=== PATIENT | female | born 1970 | race Caucasian/White ===

== ENCOUNTER 2023-06-30 12:00 | Emergency (ER) | payer BC, SELFPAY ==
[2023-06-30 12:05] VITALS: BP 176/111; PULSE 66; RESP 18; TEMP 36.9; O2SAT 99; BMI 27.4
--- NOTE | 2023-06-30 12:30 | XR_ITS ---
WS: [id number] Exam: XR KUB portable [id number] Date/Time of Exam: 06/30/2023 12:30 PM Reason For Exam: abd pain No bowel obstruction or free air. Signs of constipation. No sign of organ enlargement. Signs of prior cholecystectomy. Bony structures are intact. IMPRESSION: 1. No acute abdominal finding. Constipation.
--- NOTE | 2023-06-30 12:35 | W.ED.FEMALGU ---
HPI - Female Genitourinary General: Chief complaint: Urogenital-Female Stated complaint: maybe UTI and cant poop Time Seen by Provider: 06/30/23 12:30 Source: patient Mode of arrival: ambulatory History of Present Illness: 53-year-old female presents to the emergency room with complaints of abdominal pain and an episode of diaphoresis nausea lethargy feeling. 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 It passed she still feels somewhat tired now. By the time I had seen the patient she was no longer diaphoretic nursing notes states she had been diaphoretic. She denies any nausea vomiting or diarrhea she reports she frequently has UTIs has not had any hematuria no flank pain. No nausea or vomiting. She has not been able to bowel movement for nearly 10 days. Complaining of some persistent lower abdominal pelvic cramping MD elicited complaint: dysuria Pertinent past history: recurrent UTIs Onset (ago): minute(s) Location of symptoms: pelvis Severity: severe Quality of pain: cramping Exacerbating factors: none Relieving factors: none Associated symptoms: Reports abdominal pain and headache(s); Deny short of breath, fevers/chills, nausea, rash, seizures, syncope, vaginal bleeding, vaginal discharge or weakness Treatment prior to arrival: none Review of Systems Const: Denies: fever(s) or chills Card: Denies: syncope Resp: Denies: dyspnea GI: Reports: abdominal pain; Denies: nausea : Denies: vaginal discharge Musc: Denies: neck pain or back pain Skin/Breast: Denies: rash Neuro: Reports: headache(s) Physical Exam Const: COMMON NORMALS: no acute distress GENERAL APPEARANCE: cooperative and comfortable ORIENTATION/CONSCIOUSNESS: Yes awake, Yes oriented to person, Yes oriented to place and Yes oriented to time HENMT: COMMON NORMALS: normocephalic, atraumatic and hearing grossly normal bilaterally HEAD & SCALP: normocephalic and atraumatic Resp: COMMON NORMALS: normal respiratory effort, No retractions, No use of accessory muscles and clear to auscultation bilaterally AUSCULTATION: clear to auscultation bilaterally Cardio: COMMON NORMALS: regular rate, regular rhythm and No murmurs present (Cardio) RATE: regular rate RHYTHM: regular rhythm GI: COMMON NORMALS: Soft to palpation and No hepatosplenomegaly present AUSCULTATION: Yes normoactive bowel sounds PALPATION: Yes Soft to palpation, No Tenderness to palpation present (GI), No Guarding due to palpation present (GI) and Yes No hepatosplenomegaly present : SPECULUM EXAM - VAGINA: No vaginal bleeding OB/EXTERNAL & SPECULUM: No vaginal bleeding Extremity: COMMON NORMALS: normal to inspection, capillary refill normal, no clubbing, cyanosis or edema, no calf tenderness and no pedal edema Neuro: SENSORIUM/ORIENTATION: Yes oriented to person, Yes oriented to place and Yes oriented to time Skin: COMMON NORMALS: no rashes or lesions noted GENERAL SKIN EXAM: no rashes or lesions noted Course Vital Signs: Vital signs: Vital Signs Temperature 98.4 F 06/30/23 12:05 Pulse Rate 66 06/30/23 12:05 Respiratory Rate 18 06/30/23 12:05 Blood Pressure 176/111 06/30/23 12:05 Pulse Oximetry 99 06/30/23 12:05 Oxygen Delivery Me thod Room Air 06/30/23 12:05 MDM - Female Medical Decision Making Labs and imaging reviewed. No acute findings no UTI no leukocytosis. Recommend starting laxatives such as milk of magnesia or magnesium citrate for relief of constipation follow-up with primary care return if has further problems Medical Records I reviewed the patient's medical records. Lab Data I reviewed the patient's lab results. 06/30/23 13:33 06/30/23 13:33 Laboratory Results WBC 6.44 10^3/uL (3.29-11.43) 06/30/23 13:33 RBC 4.45 10^6/uL (3.85-5.65) 06/30/23 13:33 Hgb 13.40 g/dL (11.27-16.99) 06/30/23 13:33 Hct 40.8 % (36-47) 06/30/23 13:33 MCV 91.7 fl (85-98) 06/30/23 13:33 MCH 30.1 pg (27-33) 06/30/23 13:33 MCHC 32.8 g/dL (30-55) 06/30/23 13:33 RDW 13.9 % (12.1-15.1) 06/30/23 13:33 Plt Count 234 10^3/cmm (157-399) 06/30/23 13:33 MPV 8.8 fL (7.4-10.4) 06/30/23 13:33 Neut % (Auto) 56.8 % 06/30/23 13:33 Lymph % (Auto) 32.0 % 06/30/23 13:33 [place] % (Auto) 6.2 % 06/30/23 13:33 Eos % (Auto) 4.2 % 06/30/23 13:33 Baso % (Auto) 0.5 % 06/30/23 13:33 Neut # (Auto) 3.66 10^3/uL (1.8-7.7) 06/30/23 13:33 Lymph # (Auto) 2.1 10^3/uL (0.8-4.8) 06/30/23 13:33 [place] # (Auto) 0.4 10^3/uL (0.2-0.9) 06/30/23 13:33 Eos # (Auto) 0.3 10^3/uL (0.0-0.8) 06/30/23 13:33 Baso # (Auto) 0.0 10^3/uL (0.0-0.1) 06/30/23 13:33 Nucleated RBC % (auto) 0 % 06/30/23 13:33 Nucleated RBCs # 0.0 /100WBC 06/30/23 13:33 Sodium 139 mmol/L (136-145) 06/30/23 13:33 Potassium 4.3 mmol/L (3.5-5.1) 06/30/23 13:33 Chloride 106 mmol/L (98-107) 06/30/23 13:33 Carbon Dioxide 23 mmol/L (22-29) 06/30/23 13:33 Anion Gap 14.3 (5-19) 06/30/23 13:33 BUN 15 mg/dL (6-20) 06/30/23 13:33 Creatinine 0.8 mg/dL (0.5-0.9) 06/30/23 13:33 GFR Calculation 74.7 mL/min (90-130) L 06/30/23 13:33 Glucose 78 mg/dL (65-115) 06/30/23 13:33 Calculated Osmolality 288 mOsm/kg (285-295) 06/30/23 13:33 Calcium 9.1 mg/dL (8.5-10.5) 06/30/23 13:33 Total Bilirubin 0.2 mg/dL (0.15-1.2) 06/30/23 13:33 AST 23 U/L (0-32) 06/30/23 13:33 ALT 17 U/L (0-33) 06/30/23 13:33 Alkaline Phosphatase 123 U/L (35-105) H 06/30/23 13:33 Total Protein 7.0 g/dL (6.6-8.7) 06/30/23 13:33 Albumin 4.2 g/dL (3.5-5.2) 06/30/23 13:33 Globulin 2.8 g/dL (1.3-4.6) 06/30/23 13:33 Lipase 23 U/L (13-60) 06/30/23 13:33 Urine Color Yellow (Yellow) 06/30/23 12:20 Urine Appearance Sl hazy (CLEAR) A 06/30/23 12:20 Urine pH 6 (5-7) 06/30/23 12:20 Ur Specific [place] 1.010 (1.005-1.030) 06/30/23 12:20 Urine Protein Neg (Negative) 06/30/23 12:20 Urine Glucose (UA) Norm (Normal) 06/30/23 12:20 Urine Ketones Negative (Negative) 06/30/23 12:20 Urine Blood Neg (Negative) 06/30/23 12:20 Urine Nitrate Negative (Negative) 06/30/23 12:20 Urine Bilirubin Neg (Negative) 06/30/23 12:20 Urine Urobilinogen Norm mg/dL (Negative) 06/30/23 12:20 Ur Leukocyte Esterase Negative (Negative) 06/30/23 12:20 Urine RBC Rare /hpf (0-2) 06/30/23 12:20 Urine WBC 0-4 /hpf (0-5) H 06/30/23 12:20 Ur Squamous Epith Cells 0-4 /hpf (0-5) H 06/30/23 12:20 Amorphous Sediment Not Reportable 06/30/23 12:20 Urine Bacteria 1+ /hpf (NONE) H 06/30/23 12:20 All radiology interpretation(s) finalized by discharge Discharge Plan Discharge Patient Disposition: Home Clinical Impression: Constipation Condition: Stable Prescriptions: No Action Multi-Vitamins Tablet 1 tab PO QAM Wellbutrin SR 150 mg Tablet Sustained-Release 12 Hr 150 mg PO QAM tizanidine 2 mg Tablet 2 mg PO BEDTIME PRN (Reason: Spasms) Xanax 1 mg Tablet See Rx Instructions .ROUTE .COMPLEX PRN (Reason: Anxiety) Rx Instructions: 1 mg orally up to 3 times daily as needed meloxicam 15 mg Tablet 15 mg PO QAM tramadol 50 mg Tablet 50 mg PO Q6H PRN (Reason: Pain) propranolol 10 mg Tablet 10 mg PO BID estradiol 1 mg Tablet 1 mg PO QAM iueifzedfv-akxrwae-khozrlgd 50-325-40 mg Tablet 0.5 tab PO Q6H PRN (Reason: Pain) oxycodone 5 mg Tablet 5 mg PO Q6H PRN (Reason: Pain) duloxetine 30 mg Capsule,Delayed Release(Dr/Ec) 30 mg PO QAM biotin 5 mg Tablet 5 mg PO DAILY mike extract 500 mg Capsule 500 mg PO QAM Probiotic 3 billion cell Capsule 3,000 mmu cells PO DAILY Rx Instructions: administer with a meal Collagen 1500 Plus C 500 mg-800 mcg- 50 mg Capsule 1 cap PO QAM Hair, Skin and Nails (biotin) 10,000 mcg Tablet,Chewable 10,000 mcg PO QAM Discharge Orders: Discharge ED (Routine); Ordered 06/30/23 Ordered By: Timbo Garcia Discharge Diet: Usual diet Discharge Activity: Increase activity as tolerated Patient Instructions: Opioid Safety, Pain Management Stand Alone Forms: Work/School Release Coding Level of Care Code ED Slab Miller Operator for Geoff Everett
[2023-06-30 12:49] LABS: Urine Color Yellow (Yellow)
[2023-06-30 12:50] LABS: Add Urine Microscopic? YES; Bacteria Urine 1+ /hpf; Bilirubin Urine Neg (Negative); Blood Urine Neg (Negative); Glucose Urine UA Norm (Normal); Ketones Urine Negative (Negative); Leukocyte Esterase Urine Negative (Negative); Nitrate Urine Negative (Negative); Protein Urine Neg (Negative); RBC Urine RARE /hpf (0-2); Squamous Epithelial Cell Urine 0-4 /hpf (0-5); Urine Appearance SL Hazy (CLEAR); Urobilinogen Urine Norm (Negative); WBC Urine 0-4 /hpf (0-5); pH Urine 6 (5-7)
[2023-06-30 13:54] LABS: Basophils % 0.5 %; Eosinophils # 0.3 10^3/uL (0.0-0.8); Eosinophils % 4.2 %; Hematocrit 40.8 % (36-47); Lymphocytes # 2.1 10^3/uL (0.8-4.8); Mean Corpuscular HGB Conc 32.8 g/dL (30-55); Mean Corpuscular Hemoglobin 30.1 pg (27-33); Mean Corpuscular Volume 91.7 fl (85-98); Mean Platelet Volume 8.8 fL (7.4-10.4); Monocytes # 0.4 10^3/uL (0.2-0.9); Monocytes % 6.2 %; Neutrophils # 3.66 10^3/uL (1.8-7.7); Neutrophils % 56.8 %; Nucleated Red Blood Cells % 0 %; Platelet Count 234 10^3/cmm (157-399); Red Blood Count 4.45 10^6/uL (3.85-5.65); Red Cell Distribution Width 13.9 % (12.1-15.1); White Blood Count 6.44 10^3/uL (3.29-11.43)
--- NOTE | 2023-06-30 14:02 | PC.PHAR ---
PT STATES JUST MOVED HERE AND HAS HOME PHARMACY [facility] IN [place]. PT HAS GIVEN MED HISTORY FROM [facility], STATES SHE HAS TAKEN MEDS FOR A LONG TIME.
[2023-06-30 14:26] LABS: Alanine Aminotransferase 17 U/L (0-33); Albumin Level 4.2 g/dL (3.5-5.2); Alkaline Phosphatase 123 U/L (35-105); Anion Gap 14.3 (5-19); Aspartate Amino Transferase 23 U/L (0-32); Blood Urea Nitrogen 15 mg/dL (6-20); Calcium 9.1 mg/dL (8.5-10.5); Carbon Dioxide 23 mmol/L (22-29); Chloride 106 mmol/L (98-107); Globulin 2.8 g/dL (1.3-4.6); Glomerular Filtration Rate 74.7 mL/min (90-130); Glucose 78 mg/dL (65-115); Lipase 23 U/L (13-60); Osmolality Calculated 288 mOsm/kg (285-295); Potassium 4.3 mmol/L (3.5-5.1); Sodium 139 mmol/L (136-145); Total Bilirubin 0.2 mg/dL (0.15-1.2)
== END 2023-06-30 15:07 | disposition home or self-care (01) ==
PROVIDERS: Physician Assistant; Emergency Provider Family Medicine
DX: K59.00 Constipation, unspecified (principal)
CPT/HCPCS: 36415; 74018; 80053; 81001; 83690; 85025; 99284

== ENCOUNTER 2024-02-02 18:43 | Emergency (ER) | payer BC, SELFPAY ==
[2024-02-02 18:48] VITALS: BP 151/84; PULSE 79; RESP 16; TEMP 36.3; O2SAT 98
[2024-02-02 19:30] VITALS: BP 147/99; PULSE 75; RESP 14; O2SAT 98
[2024-02-02 19:37] LABS: Basophils % 0.3 %; Eosinophils # 0.4 10^3/uL (0.0-0.8); Eosinophils % 5.1 %; Hematocrit 39.4 % (36-47); Lymphocytes # 1.1 10^3/uL (0.8-4.8); Lymphocytes % 13.9 %; Mean Corpuscular Hemoglobin 29.4 pg (27-33); Mean Corpuscular Volume 94.9 fl (85-98); Mean Platelet Volume 9.1 fL (7.4-10.4); Monocytes # 0.4 10^3/uL (0.2-0.9); Monocytes % 5.8 %; Neutrophils # 5.67 10^3/uL (1.8-7.7); Neutrophils % 74.6 %; Nucleated Red Blood Cells % 0 %; Platelet Count 270 10^3/cmm (157-399); Red Blood Count 4.15 10^6/uL (3.85-5.65); Red Cell Distribution Width 13.5 % (12.1-15.1)
[2024-02-02] MEDS: lidocaine 2% viscous 15 ML, aluminum-mag hydrox-simethicon 30 ML, sucralfate oral liq 1 GM PO (19:51)
[2024-02-02] MEDS: sodium chloride 0.9% 1,000 ML 999 ML IV (19:51)
[2024-02-02] MEDS: pantoprazole 40 mg SDV 80 MG IVP (19:52)
[2024-02-02 19:56] LABS: Alanine Aminotransferase 99 U/L (0-33); Albumin Level 4.3 g/dL (3.5-5.2); Alkaline Phosphatase 249 U/L (35-105); Aspartate Amino Transferase 249 U/L (0-32); Blood Urea Nitrogen 11 mg/dL (6-20); Calcium 8.5 mg/dL (8.5-10.5); Carbon Dioxide 29 mmol/L (22-29); Chloride 102 mmol/L (98-107); Globulin 2.7 g/dL (1.3-4.6); Glomerular Filtration Rate 74.5 mL/min (90-130); Glucose 100 mg/dL (65-115); Osmolality Calculated 289 mOsm/kg (285-295); Sodium 140 mmol/L (136-145); Total Bilirubin 0.5 mg/dL (0.15-1.2)
[2024-02-02 19:57] LABS: Lipase 30 U/L (13-60)
[2024-02-02 20:00] VITALS: BP 165/88; PULSE 76; RESP 14; O2SAT 97
--- NOTE | 2024-02-02 20:01 | CTR_ITS ---
PROCEDURE INFORMATION: Exam: CT Abdomen And Pelvis With Contrast Exam date and time: 02/02/2024 8:17 PM Age: 54 years old Clinical indication: Pain and abnormal findings; Abnormal lab test; Abdominal pain; Prior surgery; Surgery date: 6+ months; Surgery type: Gb. Appy. Hysto. Jamison. Patient HX: Epigastric pain with elevated liver enzymes. History of pancreatitis and gastric ulcers. ; Additional info: Epigastric pain with elevated liver enzymes, no rebound, but significant guarding TECHNIQUE: Imaging protocol: Computed tomography of the abdomen and pelvis with contrast. Radiation optimization: All CT scans at this facility use at least one of these dose optimization techniques: automated exposure control; mA and/or kV adjustment per patient size (includes targeted exams where dose is matched to clinical indication); or iterative reconstruction. Contrast material: OMNI 350; Contrast volume: 100 ml; Contrast route: INTRAVENOUS (IV); COMPARISON: CR XR KUB portable [id number] 06/30/2023 12:36 PM RADIATION DOSE METRICS: Total DLP (mGy-cm): 679.25 FINDINGS: Liver: Normal. No mass. Gallbladder and bile ducts: The gallbladder is absent. Pancreas: Normal. No ductal dilation. Spleen: Normal. No splenomegaly. Adrenal glands: Normal. No mass. Kidneys and ureters: Normal. No hydronephrosis. Stomach and bowel: Unremarkable. No obstruction. No mucosal thickening. Appendix: The appendix is not visualized but there are no secondary signs of acute appendicitis. Intraperitoneal space: Unremarkable. No free air. No significant fluid collection. Vasculature: Unremarkable. No abdominal aortic aneurysm. Lymph nodes: Unremarkable. No enlarged lymph nodes. Urinary bladder: Unremarkable as visualized. Reproductive: Unremarkable as visualized. Bones/joints: Unremarkable. No acute fracture. Soft tissues: Unremarkable. CT/CT abdomen pelvis w con* [id number] IMPRESSION: 1. No bowel obstruction or inflammatory process associated with the bowel. 2. No free air or significant free fluid in the abdomen or pelvis. 3. No evidence of appendicitis.
[2024-02-02] MEDS: iohexol 350 mg/mL 500 mL Btl (per mL) IV (20:20)
[2024-02-02 20:30] VITALS: BP 178/95; PULSE 88; RESP 16; O2SAT 99
--- NOTE | 2024-02-02 20:47 | PC.NURSE ---
PAIN REASSESSED AT 12/12
[2024-02-02 21:30] VITALS: BP 175/81; PULSE 72; RESP 15; O2SAT 97
[2024-02-02] MEDS: propranolol 20 mg Tablet 10 MG PO (21:35)
[2024-02-02] MEDS: sucralfate 1 gm Tablet PO (21:35)
--- NOTE | 2024-02-02 21:41 | ED_ITS ---
HPI - Abdominal Pain 2 General: Chief Complaint: Abdominal Pain Stated Complaint: ABD Pain\Ulser Time Seen by Provider: 02/02/24 19:04 History of Present Illness: The patient presents to the emergency room with a chief complaint of significant epigastric pain, which he attributes to his known ulcer condition. He reports that the pain has been particularly severe, waking him up at night, and unlike previous episodes, it has not been alleviated by drinking milk. Additionally, he notes that his stool is darker today, which is a new development. The patient has a pertinent past medical history of pancreatitis, which he explains was caused by a gallstone. He also mentions experiencing chills off and on, which he associates with his recent hip replacement surgery rather than his current abdominal issues. Regarding his current medication, the patient indicates that he was initially prescribed medication for his ulcer but feels he does not need it, though he still takes it. He does not specify the name or dosage of this medication. Review of Systems 2 General: Reports: 10 or more systems reviewed and unremarkable except in HPI and below Physical Exam 2 Const: COMMON NORMALS: no acute distress, patient oriented x3, healthy appearing, alert and well nourished HENMT: COMMON NORMALS: normocephalic HEAD & SCALP: normocephalic Eye: COMMON NORMALS: EOMs intact bilaterally Neck/C-Spine: COMMON NORMALS: full ROM and supple Resp: COMMON NORMALS: normal respiratory effort, No retractions and clear to auscultation bilaterally AUSCULTATION: clear to auscultation bilaterally Cardio: COMMON NORMALS: regular rate, regular rhythm, No gallops present (Cardio) and No murmurs present (Cardio) RATE: regular rate RHYTHM: r egular rhythm GI: COMMON NORMALS: Soft to palpation and No hepatosplenomegaly present I NSPECTION: Yes normal to inspection AUSCULTATION: Yes Hypoactive bowel sounds present PALPATION: Yes Soft to palpation, Yes Tenderness to palpation present (GI) Details: LUQ and other (Epigastric), No Guarding due to palpation present (GI), No Rigid due to palpation, Yes No hepatosplenomegaly present and No Rebound tenderness present Extremity: GENERAL: Yes normal exam except as noted Neuro: COMMON NORMALS: patient oriented x3 SENSORIUM/ORIENTATION: Yes alert Skin: COMMON NORMALS: no rashes or lesions noted GENERAL SKIN EXAM: no rashes or lesions noted Course 2 Vital Signs: Vital signs: Vital Signs Temperature 97.4 F L 02/02/24 18:48 Pulse Rate 79 02/02/24 18:48 Respiratory Rate 16 02/02/24 18:48 Blood Pressure 151/84 02/02/24 18:48 Pulse Oximetry 98 02/02/24 18:48 Oxygen Delivery Me thod Room Air 02/02/24 18:48 MDM - Abdominal Pain Medical Decision Making 54-year-old female presents to the emergency department for evaluation of epigastric abdominal pain. She did endorse some nausea without hematemesis or hematochezia. Patient's laboratory exam only demonstrated mildly elevated liver enzymes. CT scan was globally unremarkable. Patient's history of ulcer, symptoms, and evaluation here in the emergency department are all consistent with peptic ulcer disease without hemorrhage. She is hemodynamically stable. She responded well to GI cocktail and IV Protonix. Discharged home with oral Protonix twice daily. Instructed her to follow-up with her primary care physician for evaluation on elevated liver enzymes and referral for evaluation of her ulcer. Discussed return precautions including hematemesis, worsening pain, inability to tolerate oral intake. Of note her blood pressure was elevated in the emergency department and she was given 1 dose of her home medication as she normally takes it in the evening. Patient discharged home in good condition. Differential Diagnosis Likely abdominal pain (Peptic ulcer disease, gastritis), constipation, pancreatitis and small bowel obstruction Lab Data 02/02/24 18:22 02/02/24 18:22 Labs/Radiology: Radiology Impressions Abdomen/Pelvis CT 02/02/24 20:01 IMPRESSION: 1. No bowel obstruction or inflammatory process associated with the bowel. 2. No free air or significant free fluid in the abdomen or pelvis. 3. No evidence of appendicitis. Laboratory Results WBC 7.60 10^3/uL (3.29-11.43) 02/02/24 18:22 RBC 4.15 10^6/uL (3.85-5.65) 02/02/24 18:22 Hgb 12.20 g/dL (11.27-16.99) 02/02/24 18:22 Hct 39.4 % (36-47) 02/02/24 18:22 MCV 94.9 fl (85-98) 02/02/24 18:22 MCH 29.4 pg (27-33) 02/02/24 18:22 MCHC 31.0 g/dL (30-55) 02/02/24 18:22 RDW 13.5 % (12.1-15.1) 02/02/24 18: Plt Count 270 10^3/cmm (157-399) 02/02/24 18:22 MPV 9.1 fL (7.4-10.4) 02/02/24 18:22 Neut % (Auto) 74.6 % 02/02/24 18:22 Lymph % (Auto) 13.9 % 02/02/24 18:22 [place] % (Auto) 5.8 % 02/02/24 18:22 Eos % (Auto) 5.1 % 02/02/24 18:22 Baso % (Auto) 0.3 % 02/02/24 18: Neut # (Auto) 5.67 10^3/uL (1.8-7.7) 02/02/24 18:22 Lymph # (Auto) 1.1 10^3/uL (0.8-4.8) 02/02/24 18:22 [place] # (Auto) 0.4 10^3/uL (0.2-0.9) 02/02/24 18:22 Eos # (Auto) 0.4 10^3/uL (0.0-0.8) 02/02/24 18: Baso # (Auto) 0.0 10^3/uL (0.0-0.1) 02/02/24 18: Nucleated RBC % (auto) 0 % 02/02/24 18: Nucleated RBCs # 0.0 /100WBC 02/02/24 18:22 Sodium 140 mmol/L (136-145) 02/02/24 18:22 Potassium 4.0 mmol/L (3.5-5.1) 02/02/24 18:22 Chloride 102 mmol/L (98-107) 02/02/24 18:22 Carbon Dioxide 29 mmol/L (22-29) 02/02/24 18:22 Anion Gap 13.0 (5-19) 02/02/24 18:22 BUN 11 mg/dL (6-20) 02/02/24 18:22 Creatinine 0.8 mg/dL (0.5-0.9) 02/02/24 18:22 GFR Calculation 74.5 mL/min (90-130) L 02/02/24 18:22 Glucose 100 mg/dL (65-115) 02/02/24 18:22 Calculated Osmolality 289 mOsm/kg (285-295) 02/02/24 18:22 Calcium 8.5 mg/dL (8.5-10.5) 02/02/24 18:22 Total Bilirubin 0.5 mg/dL (0.15-1.2) 02/02/24 18:22 AST 249 U/L (0-32) H 02/02/24 18:22 ALT 99 U/L (0-33) H 02/02/24 18:22 Alkaline Phosphatase 249 U/L (35-105) H 02/02/24 18:22 Total Protein 7.0 g/dL (6.6-8.7) 02/02/24 18:22 Albumin 4.3 g/dL (3.5-5.2) 02/02/24 18:22 Globulin 2.7 g/dL (1.3-4.6) 02/02/24 18:22 Lipase 30 U/L (13-60) 02/02/24 18:22 All radiology interpretation(s) finalized by discharge Discharge Plan Discharge Patient Disposition: Home Clinical Impression: Peptic ulcer, Transaminitis Condition: Stable Prescriptions: New Protonix 40 mg tablet,delayed release (DR/EC) 40 mg PO BID 10 Days Qty: 20 0RF No Action Multi-Vitamins Tablet 1 tab PO QAM Wellbutrin SR 150 mg Tablet Sustained-Release 12 Hr 150 mg PO QAM tizanidine 2 mg Tablet 2 mg PO BEDTIME PRN (Reason: Spasms) Xanax 1 mg Tablet See Rx Instructions .ROUTE .COMPLEX PRN (Reason: Anxiety) Rx Instructions: 1 mg orally up to 3 times daily as needed meloxicam 15 mg Tablet 15 mg PO QAM tramadol 50 mg Tablet 50 mg PO Q6H PRN (Reason: Pain) propranolol 10 mg Tablet 10 mg PO BID estradiol 1 mg Tablet 1 mg PO QAM ngvaqnmyim-zkmnmgc-golzaiak 50-325-40 mg Tablet 0.5 tab PO Q6H PRN (Reason: Pain) oxycodone 5 mg Tablet 5 mg PO Q6H PRN (Reason: Pain) duloxetine 30 mg Capsule,Delayed Release(Dr/Ec) 30 mg PO QAM biotin 5 mg Tablet 5 mg PO DAILY mike extract 500 mg Capsule 500 mg PO QAM Probiotic 3 billion cell Capsule 3,000 mmu cells PO DAILY Rx Instructions: administer with a meal Collagen 1500 Plus C 500 mg-800 mcg- 50 mg Capsule 1 cap PO QAM Hair, Skin and Nails (biotin) 10,000 mcg Tablet,Chewable 10,000 mcg PO QAM Discharge Orders: Discharge ED (Routine); Ordered 02/02/24 Ordered By: Sixto Hendrix Referrals: Fadi Nation MD [Primary Care Provider] - (Follow-up on abnormal liver enzymes and peptic ulcer.) Discharge Diet: Advance as tolerated Discharge Activity: Increase activity as tolerated Patient Instructions: Peptic Ulcer (ED), Opioid Safety, Pain Management Activity Restrictions/Additional Instructions: Please return to the emergency department for new or worsening symptoms. Please take medications as prescribed. Please follow-up with your primary care physician for further management of your ulcer and abnormal liver enzymes. Coding Level of Care Code ED Traffic Signal Technician for Geoff Everett
--- NOTE | 2024-02-03 09:46 | PC.NURSE ---
prescription called into [facility]
== END 2024-02-02 22:00 | disposition home or self-care (01) ==
PROVIDERS: Emergency Provider General Practice
DX: K27.9 Peptic ulcer, site unspecified, unspecified as acute or chronic, without hemorrhage or perforation (principal); R74.01 Elevation of levels of liver transaminase levels
CPT/HCPCS: 74177; 80053; 83690; 85025; 96361; 96374; 99285; C9113; J7030; Q9967

== ENCOUNTER 2025-01-28 09:46 | Emergency (ER) | payer OTHER, MEDICAID, SELFPAY ==
[2025-01-28 10:06] VITALS: BP 167/96; PULSE 77; RESP 17; TEMP 36.9; O2SAT 97; BMI 29.2
--- NOTE | 2025-01-28 10:37 | CT_ITS ---
WS: [id number] CT HEAD NONCONTRAST HISTORY: pires TECHNIQUE: Contiguous axial imaging performed through the brain. Bone and soft tissue windows. Sagittal and coronal reformats reviewed. All CT scans at [facility] use at least one of these dose optimization techniques: automated exposure control; mA and/or kV adjustment per patient size (includes targeted exams where dose is matched to clinical indication); or iterative reconstruction. DLP: 1319.66 mGy.cm COMPARISON: None available. No acute intracranial hemorrhage, midline shift or mass effect. No atrophy or prior infarcts or herniation. Ventricles: Normal size with no hydrocephalus. Paranasal sinuses: As visualized are clear. Mastoid air cells: Well pneumatized. Calvarium and scalp: Skull is intact with no soft tissue edema or swelling. CT/CT head wo con* [id number] IMPRESSION: Negative head CT.
--- NOTE | 2025-01-28 10:37 | XR_ITS ---
WS: [id number] PORTABLE CHEST HISTORY: weakness COMPARISON: 03/28/2050 Lungs are clear and well expanded. No pleural effusion or pneumothorax. Cardiac size: Normal. Mediastinum/Aorta: Normal mediastinum. No osseous abnormality seen. XR/XR chest 1V portable [id number] IMPRESSION: Unremarkable portable chest.
--- NOTE | 2025-01-28 10:45 | CT_ITS ---
WS: [id number] CT CERVICAL SPINE HISTORY: neck pain TECHNIQUE: Contiguous 2.0 mm axial imaging performed through the entire cervical spine. Sagittal and coronal reformats also performed. All CT scans at [facility] use at least one of these dose optimization techniques: automated exposure control; mA and/or kV adjustment per patient size (includes targeted exams where dose is matched to clinical indication); or iterative reconstruction. DLP: 1319.66 mGy.cm COMPARISON: Prior C-spine CT 05/20/2015. Mild curvature and scoliosis of the cervical spine. Prior anterior cervical fusion from C4-C6. Interbody spacers at C4-5 and C5-6. There is revision at the C6-7 level with new disc spacer and screw which is new since 05/20/2015. There is lucency around the elbow likely oriented screw extending through C7. Advanced facet joint arthropathy on the LEFT with fusion of the facet joints at C4-5. Severe facet arthropathy on the LEFT at C2-3 and C3-4. Additional advanced facet joint arthritis on the RIGHT from C2-C6. No acute fractures. Moderate C2-3 RIGHT foraminal stenosis. Moderate LEFT foraminal stenosis at C3-4. Osteophytic ridging at C5-6. Osteophytic ridging at C6-7 with moderate bilateral foraminal stenosis. Lung apices are clear. CT/CT cervical spin wo con* [id number] IMPRESSION: 1. Prior anterior cervical fusion with interbody spacers from C4-C6. 2. No revision hardware since 2014 at C6-7. 3. Lucency surrounding the oblique screw at the C7 level which may indicate lo osening. 4. Multilevel facet joint arthritis and foraminal narrowing as above. 5. No fractures identified.
--- NOTE | 2025-01-28 10:57 | W.ED.HA ---
HPI - Headache General: Chief Complaint: Headache Stated Complaint: back pain, MORSE, blacking out Time Seen by Provider: 01/28/25 10:31 Source: patient Limitations: no limitations History of Present Illness: 54-year-old female is here with multiple complaints she states that she has history of chronic pain and arthritis states has been having pain in her neck along with headaches she states she has been having generalized weakness has been having back pain. States she has had episodes of passing out over the last 3 weeks. She denies any chest pain. Denies any fevers Associated symptoms: Reports syncope; Deny chest pain, fever(s), nausea, rash or vomiting Related Data Home Medications ?Medication ?Instructions ?Recorded ?Confirmed alprazolam 1 mg tablet (Xanax) See Rx Instructions .Route 06/30/23 06/30/23 .COMPLEX PRN Anxiety biotin 10,000 mcg chewable tablet 10,000 mcg PO QAM 06/30/23 06/30/23 (Hair, Skin and Nails (biotin)) biotin 5 mg tablet 5 mg PO DAILY 06/30/23 06/30/23 bupropion HCl 150 mg tablet,12 hr 150 mg PO QAM 06/30/23 06/30/23 sustained-release (Wellbutrin SR) zenwioaqcm-jxrwsig-pluatsbs 50 0.5 tab PO Q6H PRN Pain 06/30/23 06/30/23 mg-325 mg-40 mg tablet collagen,hydrolysate 500 mg-biotin 1 cap PO QAM 06/30/23 06/30/23 800 mcg-ascorbic acid 50 mg capsule (Collagen 1500 Plus C) duloxetine 30 mg capsule,delayed 30 mg PO QAM 06/30/23 06/30/23 release estradiol 1 mg tablet 1 mg PO QAM 06/30/23 06/30/23 lactobacillus combination no.4 3 3,000 mmu cells PO DAILY 06/30/23 06/30/23 billion cell capsule (Probiotic) mike extract 500 mg capsule 500 mg PO QAM 06/30/23 06/30/23 meloxicam 15 mg tablet 15 mg PO QAM 06/30/23 06/30/23 multivitamin 1 tab PO QAM 06/30/23 06/30/23 oxycodone 5 mg tablet 5 mg PO Q6H PRN Pain 06/30/23 06/30/23 propranolol 10 mg tablet 10 mg PO BID 06/30/23 06/30/23 tizanidine 2 mg tablet 2 mg PO BEDTIME PRN Spasms 06/30/23 06/30/23 tramadol 50 mg tablet 50 mg PO Q6H PRN Pain 06/30/23 06/30/23 Previous Rx's ?Medication ?Instructions ?Recorded methocarbamol 750 mg tablet 750 mg PO Q6H PRN spasms #20 tabs 01/28/25 naproxen 500 mg tablet (Naprosyn) 500 mg PO BID PRN pain #20 tabs 01/28/25 Allergies Allergy/AdvReac Type Severity Reaction Status Date / Time No Known Allergies Allergy Verified 02/02/24 18:54 Review of Systems Const: Denies: fever(s), chills, body aches or change in appetite Eyes: Denies: blurry vision or eye discomfort ENMT: Denies: throat pain or dental pain Card: Reports: syncope; Denies: chest pain Resp: Denies: dyspnea GI: Denies: abdominal pain, nausea, vomiting or diarrhea Musc: Reports: neck pain and back pain Skin/Breast: Denies: rash Neuro: Denies: headache(s) Physical Exam Const: COMMON NORMALS: no acute distress, patient oriented x3 and healthy appearing HENMT: COMMON NORMALS: normocephalic and atraumatic HEAD & SCALP: normocephalic and atraumatic Eye: COMMON NORMALS: Equal, round and reactive pupils present and EOMs intact bilaterally PUPIL: Yes Equal, round and reactive pupils present Neck/C-Spine: COMMON NORMALS: full ROM and supple Chest: COMMONS NORMALS: normal inspection of the chest and normal palpation of entire chest wall Resp: COMMON NORMALS: normal respiratory effort, No retractions, No use of accessory muscles and clear to auscultation bilaterally AUSCULTATION: clear to auscultation bilaterally Cardio: COMMON NORMALS: regular rate, regular rhythm and No murmurs present (Cardio) RATE: regular rate RHYTHM: regular rhythm GI: COMMON NORMALS: Normal to inspection, nondistended, normoactive bowel sounds present, Soft to palpation, non-tender and no masses PALPATION: Yes Soft to palpation Extremity: COMMON NORMALS: normal to inspection and full ROM Neuro: COMMON NORMALS: patient oriented x3, moves all extremities and no focal motor deficits Psych: COMMON NORMALS: mental status grossly normal, Normal thought process present and cooperative THOUGHT PROCESS: Normal thought process present Skin: COMMON NORMALS: no rashes or lesions noted and no wounds GENERAL SKIN EXAM: no rashes or lesions noted Course Vital Signs: Vital signs: Vital Signs Temperature 98.5 F 01/28/25 10:06 Pulse Rate 77 01/28/25 10:06 Respiratory Rate 17 01/28/25 10:06 Blood Pressure 167/96 01/28/25 10:06 Pulse Oximetry 97 01/28/25 10:06 Oxygen Delivery Me thod Room Air 01/28/25 10:06 MDM - Headache Medical Decision Making Patient presents with headache and neck pain is chronic in nature imaging blood work here is all normal she feels improved she is stable for discharge we will get her follow-up with medicare contact specialist she is return if worsening. Medical Records I reviewed the patient's medical records. Lab Data I reviewed the patient's lab results. 01/28/25 12:05 01/28/25 12:05 Radiology Impressions Chest X-Ray 01/28/25 10:37 IMPRESSION: Unremarkable portable chest. Head CT 01/28/25 10:37 IMPRESSION: Negative head CT. Cervical Spine CT 01/28/25 10:45 IMPRESSION: 1. Prior anterior cervical fusion with interbody spacers from C4-C6. 2. No revision hardware since 2014 at C6-7. 3. Lucency surrounding the oblique screw at the C7 level which may indicate loosening. 4. Multilevel facet joint arthritis and foraminal narrowing as above. 5. No fractures identified. Laboratory Results WBC 7.34 10^3/uL (3.29-11.43) 01/28/25 12:05 RBC 4.33 10^6/uL (3.85-5.65) 01/28/25 12:05 Hgb 12.70 g/dL (11.27-16.99) 01/28/25 12:05 Hct 39.6 % (36-47) 01/28/25 12:05 MCV 91.5 fl (85-98) 01/28/25 12:05 MCH 29.3 pg (27-33) 01/28/25 12:05 MCHC 32.1 g/dL (30-55) 01/28/25 12:05 RDW 13.5 % (12.1-15.1) 01/28/25 12:05 Plt Count 236 10^3/cmm (157-399) 01/28/25 12:05 MPV 9.3 fL (7.4-10.4) 01/28/25 12:05 Neut % (Auto) 56.8 % 01/28/25 12:05 Lymph % (Auto) 27.1 % 01/28/25 12:05 Grant % (Auto) 6.7 % 01/28/25 12:05 Eos % (Auto) 8.7 % 01/28/25 12:05 Baso % (Auto) 0.4 % 01/28/25 12:05 Neut # (Auto) 4.17 10^3/uL (1.8-7.7) 01/28/25 12:05 Lymph # (Auto) 2.0 10^3/uL (0.8-4.8) 01/28/25 12:05 Grant # (Auto) 0.5 10^3/uL (0.2-0.9) 01/28/25 12:05 Eos # (Auto) 0.6 10^3/uL (0.0-0.8) 01/28/25 12:05 Baso # (Auto) 0.0 10^3/uL (0.0-0.1) 01/28/25 12:05 Nucleated RBC % (auto) 0 % 01/28/25 12:05 Nucleated RBCs # 0.0 /100WBC 01/28/25 12:05 PT 12.70 SECONDS (12.1-14.9) 01/28/25 12:05 INR 0.89 (0.8-1.2) 01/28/25 12:05 Sodium 140 mmol/L (136-145) 01/28/25 12:05 Potassium 4.2 mmol/L (3.5-5.1) 01/28/25 12:05 Chloride 103 mmol/L (98-107) 01/28/25 12:05 Carbon Dioxide 28 mmol/L (22-29) 01/28/25 12:05 Anion Gap 13.2 (5-19) 01/28/25 12:05 BUN 16 mg/dL (6-20) 01/28/25 12:05 Creatinine 0.8 mg/dL (0.5-0.9) 01/28/25 12:05 GFR Calculation 74.5 mL/min (90-130) L 01/28/25 12:05 Glucose 66 mg/dL (65-115) 01/28/25 12:05 Calculated Osmolality 289 mOsm/kg (285-295) 01/28/25 12:05 Calcium 9.3 mg/dL (8.5-10.5) 01/28/25 12:05 Total Bilirubin 0.2 mg/dL (0.15-1.2) 01/28/25 12:05 AST 21 U/L (0-32) 01/28/25 12:05 ALT 17 U/L (0-33) 01/28/25 12:05 Alkaline Phosphatase 122 U/L (35-105) H 01/28/25 12:05 Total Protein 7.1 g/dL (6.6-8.7) 01/28/25 12:05 Albumin 3.9 g/dL (3.5-5.2) 01/28/25 12:05 Globulin 3.2 g/dL (1.3-4.6) 01/28/25 12:05 Ethyl Alcohol < 10 mg/dL (0-10) 01/28/25 12:05 All radiology interpretation(s) finalized by discharge Discharge Plan Discharge Patient Disposition: Home Clinical Impression: Headache, Neck pain Condition: Stable Prescriptions: New methocarbamol 750 mg tablet 750 mg PO Q6H PRN (Reason: spasms) Qty: 20 0RF naproxen [Naprosyn] 500 mg tablet 500 mg PO BID PRN (Reason: pain) Qty: 20 0RF No Action Multi-Vitamins Tablet 1 tab PO QAM Wellbutrin SR 150 mg Tablet Sustained-Release 12 Hr 150 mg PO QAM tizanidine 2 mg Tablet 2 mg PO BEDTIME PRN (Reason: Spasms) Xanax 1 mg Tablet See Rx Instructions .ROUTE .COMPLEX PRN (Reason: Anxiety) Rx Instructions: 1 mg orally up to 3 times daily as needed meloxicam 15 mg Tablet 15 mg PO QAM tramadol 50 mg Tablet 50 mg PO Q6H PRN (Reason: Pain) propranolol 10 mg Tablet 10 mg PO BID estradiol 1 mg Tablet 1 mg PO QAM lzntojatyl-gpurtez-yynquzpb 50-325-40 mg Tablet 0.5 tab PO Q6H PRN (Reason: Pain) oxycodone 5 mg Tablet 5 mg PO Q6H PRN (Reason: Pain) duloxetine 30 mg Capsule,Delayed Release(Dr/Ec) 30 mg PO QAM biotin 5 mg Tablet 5 mg PO DAILY mike extract 500 mg Capsule 500 mg PO QAM Probiotic 3 billion cell Capsule 3,000 mmu cells PO DAILY Rx Instructions: administer with a meal Collagen 1500 Plus C 500 mg-800 mcg- 50 mg Capsule 1 cap PO QAM Hair, Skin and Nails (biotin) 10,000 mcg Tablet,Chewable 10,000 mcg PO QAM Discharge Orders: Discharge ED (Routine); Ordered 01/28/25 Ordered By: Salvatore Krueger Referrals: Huber Winn DO [Physician, Orthopedics] - 4-7 days Fadi Nation MD [Primary Care Provider, Family Practice] Discharge Diet: Advance as tolerated Discharge Activity: Resume usual activity Patient Instructions: Neck Pain (ED) Print Language: Guatemalan Coding Level of Care Code ED Board Writer for Geoff Everett
[2025-01-28] MEDS: ketorolac 30 mg/mL INJ IVP (11:23)
[2025-01-28] MEDS: diphenhydrAMINE 50 mg/mL SDV 1mL IVP (11:23)
[2025-01-28] MEDS: metoclopramide 5 mg/mL SDV 2 mL 10 MG IVP (11:24)
[2025-01-28 12:27] LABS: Basophils % 0.4 %; Eosinophils # 0.6 10^3/uL (0.0-0.8); Eosinophils % 8.7 %; Hematocrit 39.6 % (36-47); Lymphocytes % 27.1 %; Mean Corpuscular HGB Conc 32.1 g/dL (30-55); Mean Corpuscular Hemoglobin 29.3 pg (27-33); Mean Corpuscular Volume 91.5 fl (85-98); Mean Platelet Volume 9.3 fL (7.4-10.4); Monocytes # 0.5 10^3/uL (0.2-0.9); Monocytes % 6.7 %; Neutrophils # 4.17 10^3/uL (1.8-7.7); Neutrophils % 56.8 %; Nucleated Red Blood Cells % 0 %; Platelet Count 236 10^3/cmm (157-399); Red Blood Count 4.33 10^6/uL (3.85-5.65); Red Cell Distribution Width 13.5 % (12.1-15.1); White Blood Count 7.34 10^3/uL (3.29-11.43)
[2025-01-28 12:39] LABS: INR 0.89 (0.8-1.2)
[2025-01-28 12:48] LABS: Alanine Aminotransferase 17 U/L (0-33); Albumin Level 3.9 g/dL (3.5-5.2); Alkaline Phosphatase 122 U/L (35-105); Anion Gap 13.2 (5-19); Aspartate Amino Transferase 21 U/L (0-32); Blood Urea Nitrogen 16 mg/dL (6-20); Calcium 9.3 mg/dL (8.5-10.5); Carbon Dioxide 28 mmol/L (22-29); Chloride 103 mmol/L (98-107); Creatinine Clr Calc Pharmacy 76.9879; Globulin 3.2 g/dL (1.3-4.6); Glomerular Filtration Rate 74.5 mL/min (90-130); Glucose 66 mg/dL (65-115); Osmolality Calculated 289 mOsm/kg (285-295); Potassium 4.2 mmol/L (3.5-5.1); Sodium 140 mmol/L (136-145); Total Bilirubin 0.2 mg/dL (0.15-1.2); Total Protein 7.1 g/dL (6.6-8.7)
[2025-01-28 12:50] LABS: Alcohol Level < 10 mg/dL (0-10)
--- NOTE | 2025-01-28 13:19 | PC.NURSE ---
PATIENT PRESSED CALL LIGHT, EMPLOYEE (MAKENZIE) WENT INTO ROOM AND FOUND PATIENT ON THE FLOOR. PATIENT REPORTS SHE WAS TRYING TO ROLL OVER AND WAS PLACED IN BED. PATIENT STATES THE BED RAIL WAS DOWN. PATIENT ASSESSED AND STOOD UP TO GET BACK INTO BED. DR. MENA IN ROOM AND NOTIFIED OF EVENT.
[2025-01-28 13:26] VITALS: BP 123/62; PULSE 69; O2SAT 98
--- NOTE | 2025-01-30 08:34 | DCPLANNER ---
messaged ortho for er f/u
== END 2025-01-28 13:29 | disposition home or self-care (01) ==
PROVIDERS: Emergency Provider Emergency Medicine
DX: R51.9 Headache, unspecified (principal); M54.2 Cervicalgia; M54.9 Dorsalgia, unspecified
CPT/HCPCS: 36415; 70450; 71045; 72125; 80053; 80307; 85025; 85610; 96374; 96375; 99285; J1200; J1885; J2765

== ENCOUNTER → 2025-02-04 13:33 | Outpatient (BNVA) | payer OTHER, MEDICAID, SELFPAY | PROVIDERS: Visit Provider Orthopaedic Surgery | DX: M54.2 Cervicalgia (principal) | CPT/HCPCS: 72050 ==

== ENCOUNTER 2025-05-31 04:41 | Emergency (ER) | payer OTHER, MEDICAID, SELFPAY ==
--- OUTSIDE RECORDS SUMMARY | 2024-07-09 05:40 | XMS_ITS ---
Author Organization [facility] Address [address] [place] [address] Care Team Providers Care Brief Writer Name Role Phone Fadi Nation MD Primary Care Provider Isidoro Roy Unavailable [phone] Santiago Silva Unavailable [phone] REASON FOR VISIT RT HIP Medications Medication SIG (Take, Route, Frequency, Duration) Notes Start Date End Date Status Baclofen 10 MG Tablet TAKE 1 TABLET BY MOUTH EVERY 8 HOURS NEEDED FOR 14 DAYS Not-Taking HYDROcodone-Acetaminophen 5-325 MG Tablet 1 tablet as needed Orally every 12 hrs; Duration: 7 days 10/26/2021 Not-Taking tiZANidine HCl 4 MG Tablet TAKE ONE TABL ET BY MOUTH EVERY 8 HOURS NEEDED Active tiZANidine HCl 4 MG Tablet TAKE ONE TABL ET BY MOUTH EVERY 8 HOURS NEEDED Active Omeprazole 40 MG Capsule Delayed Release 1 capsule Orally twice a day; Duration: 30 day(s) 03/26/2020 Active HYDROcodone-Acetaminophen 7.5-325 MG Tablet Oral; Duration: 7 Days Active Ibuprofen 800 MG Tablet 1 tablet Orally prn Active Gabapentin 100 MG Capsule 2 capsule Oral ly TID; Duration: 30 days 06/17/2021 Active hydroCHLOROthiazide 25 MG Tablet 1 tablet in the morning Orally Once a day Active Methocarbamol 750 MG Tablet TAKE 1 table t Orally every 8 hours 30 day(s) Active DULoxetine HCl 30 MG Capsule Delayed Release Particles 1 capsule Orally Once a day Active Eliquis 2.5 MG Tablet TAKE ONE TABLET BY MOUTH TWICE DAILY Oral; Duration: 30 Days Active Estradiol 1 MG Tablet 1 tablet Orally Once a day Active buPROPion HCl ER (SR) 200 MG Tablet Extended Release 12 Hour 1 tablet in the morning Orally Once a day Active Dicyclomine HCl 10 MG Capsule 1 capsule Orally daily Active ALPRAZolam 1 MG Tablet 1 tablet Orally prn Active Encounters Encounter Location Date Provider Diagnosis [facility] [address] [place] [address], [place] [address] 07/09/2024 Santiago Silva Plan Of Treatment No Information Progress Notes * WHIT LUNAOB:1970 ([age] yo F)Acc No.[id number]:07/09/2024 Progress Notes Patient: KAMI RODRIGUES Provider: Marilynn Silva M.D. :1970 A ge:54 Y S ex:Female Date:07/09/2024 Address:[address] [place], [place] [id number] Pcp:Fadi Nation MD Subjective: * Chief Complaints: * R T HIP * Medications: T akingALPRAZolam 1 MG Tablet 1 tablet Orally prn buPROPion HCl ER (SR) 200 MG Tablet Extended Release 12 Hour 1 tablet in the morning Orally Once a day Dicyclomine HCl 10 MG Capsule 1 capsule Orally daily DULoxetine HCl 30 MG Capsule Delayed Release Particles 1 capsule Orally Once a day Eliquis 2.5 MG Tablet TAKE ONE TABLET BY MOUTH TWICE DAILY Oral Estradiol 1 MG Tablet 1 tablet Orally Once a day Gabapentin 100 MG Capsule 2 capsule Orally TID hydroCHLOROthiazide 25 MG Tablet 1 tablet in the morning Orally Once a day HYDROcodone-Acetaminophen 7.5-325 MG Tablet Oral Ibuprofen 800 MG Tablet 1 tablet Orally prn Methocarbamol 750 MG Tablet TAKE 1 tablet Orally every 8 hours 30 day(s) Omeprazole 40 MG Capsule Delayed Release 1 capsule Orally twice a day tiZANidine HCl 4 MG Tablet TAKE ONE TABLET BY MOUTH EVERY 8 HOURS NEEDED tiZANidine HCl 4 MG Tablet TAKE ONE TABLET BY MOUTH EVERY 8 HOURS NEEDED Taking ALPRAZolam 1 MG Tablet 1 tablet Orally prn Taking buPROPion HCl ER (SR) 200 MG Tablet Extended Release 12 Hour 1 tablet in the morning Orally Once a day Taking Dicyclomine HCl 10 MG Capsule 1 capsule Orally daily Taking DULoxetine HCl 30 MG Capsule Delayed Release Particles 1 capsule Orally Once a day Taking Eliquis 2.5 MG Tablet TAKE ONE TABLET BY MOUTH TWICE DAILY Oral Taking Estradiol 1 MG Tablet 1 tablet Orally Once a day Taking Gabapentin 100 MG Capsule 2 capsule Orally TID Taking hydroCHLOROthiazide 25 MG Tablet 1 tablet in the morning Orally Once a day Taking HYDROcodone-Acetaminophen 7.5-325 MG Tablet Oral Taking Ibuprofen 800 MG Tablet 1 tablet Orally prn Taking Methocarbamol 750 MG Tablet TAKE 1 tablet Orally every 8 hours 30 day(s) Taking Omeprazole 40 MG Capsule Delayed Release 1 capsule Orally twice a day Taking tiZANidine HCl 4 MG Tablet TAKE ONE TABLET BY MOUTH EVERY 8 HOURS NEEDED Taking tiZANidine HCl 4 MG Tablet TAKE ONE TABLET BY MOUTH EVERY 8 HOURS NEEDED Not-TakingBaclofen 10 MG Tablet TAKE 1 TABLET BY MOUTH EVERY 8 HOURS NEEDED FOR 14 DAYS HYDROcodone-Acetaminophen 5-325 MG Tablet 1 tablet as needed Orally every 12 hrs Not-Taking Baclofen 10 MG Tablet TAKE 1 TABLET BY MOUTH EVERY 8 HOURS NEEDED FOR 14 DAYS Not-Taking HYDROcodone-Acetaminophen 5-325 MG Tablet 1 tablet as needed Orally every 12 hrs Billing Information: * Procedure Codes: Care Plan Details* * Electronic signature of Xiang Silva MD on 05/31/2025 at 04:46 AM CDT Sign off status: Pending * Provider: Marilynn Silva M.D. Date: 09/08/2023 Generated for Christian grullon/Wilfred/Lien on: 05/31/2025 04:46 AM CDT
--- OUTSIDE RECORDS SUMMARY | 2024-07-23 05:50 | XMS_ITS ---
Author Organization [facility] Address [address] [place] [address] Care Team Providers Care Delivery Person Name Role Phone Chapis KNUTSON, Fadi Primary Care Provider Isidoro Roy Unavailable [phone] Santiago Silva Unavailable [phone] REASON FOR VISIT RT HIP Encounters Encounter Location Date Provider Diagnosis [facility] [address] [place] [address], [place] [address] 07/23/2024 Santiago Silva Plan Of Treatment No Information Progress Notes * WHIT LUNAOB:1970 ([age] yo F)Acc No.[id number]:07/23/2024 Progress Notes Patient: KAMI RODRIGUES Provider: Marilynn Silva M.D. :1970 A ge:54 Y S ex:Female Date:07/23/2024 Address:[address] [place], [place] [id number] Pcp:Fadi Nation MD Subjective: * Chief Complaints: * R T HIP Care Plan Details* * Electronic signature of Xiang Silva MD on 05/31/2025 at 04:46 AM CDT Sign off status: Pending * Provider: Marilynn Silva M.D. Date: 09/22/2023 Generated for Printi ng/Faxing/eTransmitting on: 0 05/31/2025 04:46 AM CDT
--- NOTE | 2025-05-31 04:31 | ECG_ITS ---
[employer] 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
--- OUTSIDE RECORDS SUMMARY | 2025-05-31 04:47 | XMS_ITS | Clinical Summary ---
Author Organization [facility] Yara Solitario Address [address] [facility] [facility] [place] [address] Care Team Providers Care Hairspring Inspector Name Role Phone Unavailable Primary Care Provider Unavailabl e Allergies No known active allergies Medications ALPRAZolam (XANAX) 1 mg tablet Take 1 mg by mouth nightly as needed for Anxiety. Active diclofenac sodium EC (VOLTAREN) 25 mg Tablet, Delayed Release (E.C.) Take 25 mg by mouth 2 times daily. Active ibuprofen (MOTRIN) 200 mg tablet Take 200 mg by mouth every 6 hours as needed for Pain, Mild. Active amLODIPine (NORVASC) 5 mg tablet Take 5 mg by mouth daily. Active DULoxetine (CYMBALTA) 60 mg Capsule, Delayed Release(E.C.) Take 60 mg by mouth daily. Active meloxicam (MOBIC) 15 mg tablet Take 15 mg by mouth daily. Active pantoprazole (PROTONIX) 40 mg Tablet, Delayed Release (E.C.) Take 40 mg by mouth daily. Active SUMAtriptan (IMITREX) 50 mg tablet Take 50 mg by mouth every 2 hours as needed for Headaches. may repeat in 2 hours; max dose 200mg in 24 hours Active tiZANidine (ZANAFLEX) 4 mg Capsule Take 4 mg by mouth. Active traZODone (DESYREL) 50 mg tablet Take 50 mg by mouth daily at bedtime. Active pregabalin (Lyrica) 75 mg Capsule Take 1 Capsule (75 mg) by mouth 3 times daily. 90 Capsule 05/13/2025 Active Hospital, Clinic, or Other Facility Administered Medication Ordered Dose Route Frequency Start Date End Date Status triamcinolone acetonide (KENALOG-40) injectable suspension 40 mgIndications:Pain of left hip 40 mg Intra-arTIC u ONE TIME ONLY 05/13/2025 05/13/2025 Ended triamcinolone acetonide (KENALOG-40) injectable suspension 40 mgIndications:Pain of right hip 40 mg Intra-arTIC u ONE TIME ONLY 05/13/2025 05/13/2025 Ended Active Problems No known active problems Encounters Date Type Department Care Team Description 05/29/2025 Orders Only [address] [place] [address] Andree Metcalf MD Lumbar radiculopathy (Primary Dx); Cervical spine pain 05/21/2025 External Device Data [facility] ABSTRACTION Provider, Abstract 05/20/2025 External Device Data [facility] ABSTRACTION Provider, Abstract 05/20/2025 External Device Data [facility] ABSTRACTION Provider, Abstract 05/13/2025 10:35 AM CDT Ancillary Procedure [address] [place] [facility] [place] [address] Andree Metcalf MD Pain of left hip 05/13/2025 10:30 AM CDT Ancillary Procedure [address] [place] [phone] Andree Metcalf MD Chronic pain of left knee 05/13/2025 10:20 AM CDT Office Visit [address] [place] [address] Andree Metcalf MD Lumbar radiculopathy (Primary Dx); Pain of left hip; Chronic pain of left knee; Pain of right hip; Chronic pain of right knee; Arthritis of right knee; History of left knee replacement; Trochanteric bursitis of both hips 05/13/2025 Refill [place] [address] [place] [address] Andree Metcalf MD from Last 3 Months Social History Tobacco Use Types Packs/Day Years Used Date Smoking Tobacco: Never Tobacco Cessation:Counseling Given: Not Answered Comments Unknown Sex and Gender Information Value Date Recorded Sex Assigned at Not on file Legal Sex Female 12:42 PM CDT Gender Identity Not on file Sexual Orientation Not on file Last Filed Vital Signs Vital Sign Reading Time Taken Comments Blood Pressure 137/78 05/13/2025 10:53 AM CDT Pulse - - Temperature - - Respiratory Rate - - Oxygen Saturation - - Inhaled Oxygen Concentration - - Weight 72.6 kg (160 lb) 05/13/2025 10:53 AM CDT Height 160 cm (5' 3 ) 05/13/2025 10:53 AM CDT Body Mass Index 28.34 05/13/2025 10:53 AM CDT Plan of Treatment Upcoming Encounters Date Type Department Care Team (Late st Contact Info) Description 06/09/2025 12:40 PM CDT Office Visit [facility] [address] [place] [address] Andree Metcalf MD [address] [place] [phone] John Esquivel MD [address] [place] [address] Health Maintenance Due Date Last Done Comments Pre-Diabetes and Diabetes Screening 1970 DTAP/TDAP/TD VACCINES (1 - Tdap) 01/30/1988 HEPATITIS B VACCINES (1 of 3 - 19+ 3-dose series) 01/03 HPV/Cotest (21-29) 1990 CERVICAL CANCER SCREENING 1999 HPV/Cotest (30-65) 1999 PAP SMEAR 1999 BREAST CANCER SCREENING 2009 COLORECTAL SCREENING 2014 Colorectal Cancer Screening 2014 FIT-DNA Q 3 years 2014 FIT/FOBT Q 1 year 2014 Flex Sig/CT Colonography Q 5 years 2014 ZOSTER VACCINE (1 of 2) 2019 INFLUENZA VACCINE (#1) 2025 Procedures Procedure Name Priority Date/Time Associated Diagnosis Comments XR PELVIS 1 OR 2 VW Routine 05/13/2025 1 0:50 AM CDT Pain of left hip XR KNEE 4+ VW BILAT Routine 05/13/2025 1 0:50 AM CDT Chronic pain of left knee from Last 3 Months Results * XR PELVIS 1 OR 2 VW (05/13/2025 10:50 AM CDT) Anatomical Region Laterality Modality Pelvis Computed Radiogr aphy Narrative 05/14/2025 3:13 PM CDT 2 views of the left hip and pelvis obtained today in clinic and personal read as follows: Mild joint space narrowing us Andree Metcalf MD DIAGNOSTIC IMAGING ORDERABL ES Final Result * XR KNEE 4+ VW BILAT (05/13/2025 10:50 AM CDT) Anatomical Region Laterality Modality Lower Extremity Computed Radiogr aphy Narrative 05/14/2025 3:13 PM CDT 4 views of bilateral knees obtained today in clinic and personally read as follows: Right knee shows moderate joint space narrowing of the medial compartment. Left cemented cruciate retaining total knee arthroplasty in place with no signs of hardware failure. us Andree Metcalf MD DIAGNOSTIC IMAGING ORDERABL ES Final Result from Last 3 Months Insurance [employer] EXCHANGE [id number] [address] [place] [id number] [facility] MEDICAID
--- OUTSIDE RECORDS SUMMARY | 2025-05-31 04:47 | XMS_ITS | Patient Health Record ---
Author Organization [facility] Address [address] [facility] [place] [address] Care Team Providers Care Aids Social Worker Name Role Phone Fadi Nation MD Primary Care Provider UnavailIsidoro Baez Unavailable [phone] Migration, Provider Unavailable Unavailable Santiago Silva Unavailable [phone] LyClarisseRose Unavailable Allergies No Known Allergies Results Component Value Reference Range Notes zzzCT Outside CD (Not yet re viewed by provider) Interpretation: Performing Lab: Notes/Report: [id number] XR Outside CD (Not yet revie wed by provider) Interpretation: Performing Lab: Notes/Report: [id number]=[email or web address] Schedule Confirmation Reviewed date:06/12/2024 09:34:50 AM Interpretation: Performing Lab: Notes/Report: MRI LE JT w/o Cont LT Schedule Confirmation Reviewed date:07/08/2024 01:03:35 PM Interpretation: Performing Lab: Notes/Report: MRI LE JT w/o Cont LT Reason For Referral Reason Eval and Treat for l eft hip & knee pain Diagnosis 1 Pain in left knee (M 25.562) Diagnosis 2 Hip pain, left (M25. 552) Referral Organization [facility] [place] Referring Provider First Name Isidoro Referring Provider Last Name Kiran Referring Provider Speciality Neurosurge ry Referred Provider [facility], [place] Referred Provider Specialty Orthopedic S urgery Referral Priority Routine Medications Medication SIG (Take, Route, Frequency, Duration) Notes Start Date End Date Status Estradiol 1 MG Tablet 1 tablet Orally Once a day Active Eliquis 2.5 MG Tablet TAKE ONE TABLET BY MOUTH TWICE DAILY Oral; Duration: 30 Days Active Omeprazole 40 MG Capsule Delayed Release 1 capsule Orally twice a day; Duration: 30 day(s) 03/26/2020 Active DULoxetine HCl 30 MG Capsule Delayed Release Particles 1 capsule Orally Once a day Active Methocarbamol 750 MG Tablet TAKE 1 tablet Orally every 8 hours 30 day(s) Active HYDROcodone-Acetaminophen 5-325 MG Tablet 1 tablet as needed Orally every 12 hrs; Duration: 7 days 10/26/2021 Not-Taking tiZANidine HCl 4 MG Tablet TAKE ONE TABLET BY MOUTH EVERY 8 HOURS NEEDED Active Diclofenac Sodium 25 MG Tablet Delayed Release 1 tablet as needed Orally twice a day; Duration: 30 days Patient will need to ask PCP to fill for maintenance. 03/04/2025 Active hydroCHLOROthiazide 25 MG Tablet 1 tablet in the morning Orally Once a day Active Gabapentin 100 MG Capsule 2 capsule Oral ly TID; Duration: 30 days 06/17/2021 Active tiZANidine HCl 4 MG Tablet TAKE ONE TABLET BY MOUTH EVERY 8 HOURS NEEDED Active Dicyclomine HCl 10 MG Capsule 1 capsule Orally daily Active buPROPion HCl ER (SR) 200 MG Tablet Extended Release 12 Hour 1 tablet in the morning Orally Once a day Active ALPRAZolam 1 MG Tablet 1 tablet Orally prn Active Ibuprofen 800 MG Tablet 1 tablet Orally prn Active Baclofen 10 MG Tablet TAKE 1 TABLET BY MOUTH EVERY 8 HOURS NEEDED FOR 14 DAYS Not-Taking HYDROcodone-Acetaminophen 7.5-325 MG Tablet Oral; Duration: 7 Days Active Social History Tobacco Use: Social History Observation Description Date Details (start date - stop date) Never Smoker NA - NA Social History Depression Screening Social Info Question Answer Notes PHQ-9 Little interest or pleasure in doing thin gs Not at all Feeling down, depressed, or hopeless Several day s Trouble falling or staying asleep, or sleeping t oo much Nearly every day Feeling tired or having little energy Several da ys Poor appetite or overeating Several days Feeling bad about yourself, or that you are a failure, or have let yourself or your family down Not at all Trouble concentrating on thi ngs, such as reading the newspaper or watching television Not at all Moving or speaking so slowly that other people could have noticed. Or the opposite ? being so fidgety or restless that you have been moving around a lot more than usual Not at all Thoughts that you would be b yair off , or of hurting yourself in some way Not at all Total Score 6 Interpretation Mild Depression Drugs/Alcohol: Social Info Question Answer Notes Alcohol Screen (Audit-C) Did you have a drink containing alcohol in the past year? No Points 0 Interpretation Negative Drugs Have you used drugs other than those for medical reasons in the past 12 months? No Caffeine Intake: none Drug/Alcohol: Social Info Question Answer Notes AUDIT-C (Standard) Did you have a drink containing alcohol in the past year? No Points 0 Interpretation Negative Tobacco Use: Social Info Question Answer Notes Tobacco Control (Standard) Tobacco use: Nonsmoker xTobacco Use/Smoking Are you a nonsmoker Additional Details Category Social Info Options Details Miscellaneous: Marital status: Occupation: Works part-time Migrated Social History Migrated Social History Alcoholic beverages? - No, Applying for disability? - No, Currently on disability? - No, Drug or substance abuse? - No, Marital Status - single, Nonprescription drug use? - No, Smoking - No, Working currently? - No Problems Problem Type SNOMED Code ICD Code Onset Dates Problem Status W/U Status Risk Notes Problem Localized, primary osteoarthritis of the pelvic region and thigh (095860726) Primary osteoarthritis of right hip (M16.11) Active confirmed Problem Artificial knee joint present (101284132726) Status post total right knee replacement (Z96.651) Active confirmed Problem Arthritis of right hip (3333001638531395) Arthritis of right hip (M16.11) Active confirmed Problem Degeneration of lumbar intervertebral disc (50801343) Disc degeneration, lumbar (M51.36) Active confirmed Problem Artificial knee joint present (121665382509) S/P total knee arthroplasty, left (Z96.652) Active confirmed Problem Total hip replacement Prosthesis (062413456) 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) Active confirmed Problem Age-related osteoporosis (505641891) Age-related osteoporosis without current pathological fracture (M81.0) Active confirmed Problem Localized, primary osteoarthritis of the pelvic region and thigh (856561270) Osteoarthritis of right hip, unspecified osteoarthritis type (M16.11) Active confirmed Problem Paresthesia (52107383) Paresthesia (R20.2) Active confirmed Problem Disorder of musculoskeletal system (252000) Right arm weakness (R29.898) Active confirmed Problem Disorder of musculoskeletal system (087138) Right leg weakness (R29.898) Active confirmed Problem Bleeding tendency (88400511) Bleeding tendency (D69.9) Active confirmed Problem Cervical radiculopathy (72681052) Cervical radiculopathy (M54.12) Active confirmed Problem Cervicalgia (24626213) Cervicalgia (M54.2) Active confirmed Problem Degeneration of cervical intervertebral disc (19771807) Other cervical disc degeneration, unspecified cervical region (M50.30) Active confirmed Problem Artificial knee joint present (019925363432) Status post total left knee replacement (Z96.652) Active confirmed Problem Degeneration of lumbar intervertebral disc (79535947) Degenerative disc disease, lumbar (M51.36) Active confirmed Problem Degeneration of cervical intervertebral disc (09307407) Degenerative disc disease, cervical (M50.30) Active confirmed Problem Osteoarthritis of knee (864655207) Primary osteoarthritis of right knee (M17.11) Active confirmed Problem Chronic pain (06800880) Other chronic pain (G89.29) Active confirmed Problem Neck pain (97504238) Cervical pain (neck) (M54.2) Active confirmed Problem Arthropathy of cervical spine facet joint (disorder) (470674582) Facet arthropathy, cervical (M47.812) Active confirmed Problem Chronic pain syndrome (006362990) Chronic pain syndrome (G89.4) Active confirmed Vital Signs Heart Rate 84 /min 03/04/2025 Respiratory Rate 20 /min 03/04/2025 Blood pressure diastolic 88 mm Hg 03/04/2025 Height-cm 160.02 cm 03/04/2025 Oximetry 96 % 03/04/2025 Weight-kg 70.31 kg 03/04/2025 Height 63 in 03/04/2025 Blood pressure systolic 134 mm Hg 03/04/2025 Weight 155 lbs 03/04/2025 BMI 27.45 kg/m2 03/04/2025 Encounters Encounter Location Date Provider Diagnosis [facility] [address] [place] [address] 07/25/2024 Santiago Silva Status post total left knee replacement Z96.652 and Status post total replacement of right hip Z96.641 [facility] [place] [address] [place] [address] 03/04/2025 Isidoro Beck Degenerative disc disease, cervical M50.30 ; Facet arthropathy, cervical M47.812 ; Arthrodesis status Z98.1 ; Chronic pain syndrome G89.4 ; Cervical pain (neck) M54.2 ; Pain in left knee M25.562 and Hip pain, left M25.552 Migrated_Facility 0 0 06/29/2024 Provider Migration Migrated_Facility 0 0 06/30/2024 Provider Migration [facility] [address] [place] [address] 06/03/2024 [facility] [place] [address] [place] [address] 06/05/2024 Santiago Silva Status post total left knee replacement Z96.652 and Pain in left knee M25.562 [facility] [place] [address] [place] [address] 07/04/2024 Santiago Silva Hip pain, left M25.552 [facility] [address] [place] [address] 07/04/2024 Santiago Silva Pain in left knee M25.562 and Bleeding tendency D69.9 [facility] [address] [place] [address] 07/05/2024 [facility] [place] [address] [place] [address] 07/09/2024 [facility] [address] [place] [address] 07/10/2024 [facility] [address] [place] [address] 07/29/2024 [facility] [address] [place] [address] 09/09/2024 [facility] [place] [address] [place] [address] 04/10/2025 Isidoro Beck Assessments Encounter Date Diagnosis (ICD Code) Assessment Notes Treatment Notes Treatment Clinical Notes Section Notes 03/04/2025 Degenerative disc disease, cervical (ICD-10 - M50.30) Patient returns to clinic today with complaints of increased neck pain following a fall at [facility]. States she fell out of hospital bed onto floor on 01/28/25 and has increased pain ever since. States neck pain radiates to base of skull and describes pain as dull ache/throbbing. States she is having increased headaches as well. CT cervical spine reviewed shows her previous C4-6 ACDF and extension of fusion at C6-7. Shows solid bony fusion. Also shows some arthritis at C2-4. Patient is currently taking anti-inflammator ies for arthritis pain. She also complains of left knee and hip pain. States she had previousl left knee replacement with Dr Silva that she does not feel was successful and is wanting second opinion. Will send referral to [facility]. Patient is in agreement with this plan. 03/04/2025 Facet arthropathy, cervical (ICD-10 - M47.812) 06/05/2024 Status post total left knee replacement (ICD-10 - Z96.652) 07/25/2024 Status post total left knee replacement (ICD-10 - Z96.652) This individual is 1.5 years out on the left total knee replacement. She is still having some soreness with this. By examination she may have an injury to her quadriceps mechanism. I think it would be mccracken to proceed with an MRI scan of the left knee to evaluate this area. 07/25/2024 Status post total replacement of right hip (ICD-10 - Z96.641) Satisfactory follow-up total hip arthroplasty. 07/04/2024 Pain in left knee (ICD-10 - M25.562) 07/04/2024 Hip pain, left (ICD-10 - M25.552) 07/04/2024 Bleeding tendency (ICD-10 - D69.9) 06/05/2024 Pain in left knee (ICD-10 - M25.562) 03/04/2025 Arthrodesis status (ICD-10 - Z98.1) 03/04/2025 Chronic pain syndrome (ICD-10 - G89.4) 03/04/2025 Cervical pain (neck) (ICD-10 - M54.2) 03/04/2025 Pain in left knee (ICD-10 - M25.562) 03/04/2025 Hip pain, left (ICD-10 - M25.552) Plan Of Treatment Pending Test Test Name Order Date Prothrombin Time 34894 07/14/2021 Prothrombin Time 07121 07/04/2024 ABORh 31631, 89533 07/14/2021 Antibody Screen 94833 07/14/2021 Basic Metabolic Panel (BMP) 50246 2020 Basic Metabolic Panel (BMP) 55136 2020 Blood Urea Nitrogen (BUN) 48429 07/04/20 24 CBC w\ Auto Diff 63981 07/14/2021 Creatinine (B) 63160 07/04/2024 Partial Thromboplastin Time 22249 2020 Troponin-I 09178 07/20/2021 Troponin-I 60212 07/20/2021 Troponin-I 09334 07/19/2021 Vitamin D 1,25 Dihydroxy (B) 37944 12/17 Vitamin D 1,25 Dihydroxy (B) 79716 12/17 CBC Reflex Man Diff 74387, 17165 021 Arthrogram Hip Left-28618 07/04/2024 Cervical Spine AP/Lat 2-3 Views-93318 Cervical Spine AP/Lat 2-3 Views-69071 Cervical Spine AP/Lat 2-3 Views-31073 Cervical Spine AP/Lat 2-3 Views-18655 Cervical Spine AP/Lat 2-3 Views-57718 Cervical Spine AP/Lat 2-3 Views-98641 Cervical Spine AP/Lat 2-3 Views-92113 Cervical Spine AP/Lat 2-3 Views-29016 Chest PA/Lat-02844 07/15/2021 Chest PA/Lat-81760 07/14/2021 Lumbosacral Spine AP/Lat-03833 MRI Cervical Spine w/o Cont-48265 2023 MRI Cervical Spine w/o Cont-45140 2020 MRI Cervical Spine w/o Cont-51751 2020 MRI Cervical Spine w/o Cont-59236 2020 MRI Cervical Spine w/o Cont-72402 2023 MRI Cervical Spine w/o Cont-41186 2020 MRI LE JT w/ + w/o Cont LT-13061 024 MRI LE JT w/o Cont LT-76367 06/05/2024 MRI LE JT w/o Cont LT-36269 07/25/2024 MRI Lumbar Spine w/o Cont-70474 06/17/20 XR Outside CD 02/04/2025 Electrocardiogram 12 Lead Tracing-46555 07/14/2021 Electrocardiogram 12 Lead Tracing-11324 12/18/2023 WBC Auto Diff--48479 07/19/2021 BB ABORH-82001,82172 07/15/2021 PTT-Heparin--NO CPT 07/04/2024 zzzFluoro >1h4 07/19/2021 COVID 19 PCR--61749 07/14/2021 zzzCT Outside CD 01/28/2025 Schedule Confirmation 01/25/2024 Schedule Confirmation 01/25/2024 IH Lumbosacral Spine AP/Lat - 20642 03/2024 Insurance Providers Payer Name Payer Address Payer Phone Subscriber Number Group Number Insured Name Patient Relationship to Insured Coverage Start Date Coverage End Date Home [facility] Plan Medicaid Replacement [address] [place] [address] [id number] KAMI LUNA Self - patient is the insured [place] [address] [place] [address] [id number] KAMI LUNA Self - patient is the insured [place] Medicaid [address] [place] [address] [phone] [id number] KAMI LUNA Self - patient is the insured [employer] [place] Home [address] [place] [address] [id number] KAMI LUNA Self - patient is the insured [place] Medicaid [address] [place] [address] [id number] KAMI LUNA Self - patient is the insured Medical (General) History Medical History History ICD Code Chicken Pox anemia chronic bladder infections migraine headaches hypertension bronchitis lower back pain anxiety depression hx pancreatitis Surgical History Surgery Date(Month/Year) hysterectomy cholecystectomy cervical spine surgery appendectomy Neck surgery Tubal ligation Hospitalization History Reason Date(Month/Year) for surgical procedures
--- OUTSIDE RECORDS SUMMARY | 2025-05-31 04:47 | XMS_ITS | Encounter Summary ---
Author Organization [facility] Address [address] [place] [address] Care Team Providers Care Peer Tutor Name Role Phone Unavailable Primary Care Provider Unavailabl e Reason for Referral * Eval and Treat (Routine) - Open Specialty Diagnoses / Procedures Referred By Contac t Referred To Contact Neurosurgery Diagnoses Lumbar radiculopathy Cervical spine pain Procedures [place] OFFICE/OUTPATIENT ESTABLISHED MOD MDM 30 MIN [place] OFFICE/OUTPATIENT NEW MODERATE MDM 45 MINUTES Andree Metcalf MD [address] [place] [address] Phone: tel: fax: [facility] Sp[facility] Neurosurgery [address] [place] [address] Phone: tel: fax: Referral ID Status Reason Start Date Expiration Date Visits Re quested Visits Authorized [id number] Open 05/29/2025 05/29/2026 1 1 Encounter Details Date Type Department Care Team (Late st Contact Info) Description 05/29/2025 Orders Only [facility] [address] [place] [address] Andree Metcalf MD [address] [place] [address] Lumbar radiculopathy (Primary Dx); Cervical spine pain Social History Tobacco Use Types Packs/Day Years Used Date Smoking Tobacco: Never Comments Unknown Sex and Gender Information Value Date Recorded Sex Assigned at Not on file Legal Sex Female 12:42 PM CDT Gender Identity Not on file Sexual Orientation Not on file documented as of this encounter Plan of Treatment Upcoming Encounters Date Type Department Care Team (Late st Contact Info) Description 06/09/2025 12:40 PM CDT Office Visit [facility] Pain Management [address] [place] [address] Andree Metcalf MD [address] [place] [address] John Esquivel MD [address] [place] [address] Scheduled Referrals Name Type Priority Associated Diagnoses Orde r Schedule AMB REFERRAL TO SPINE SURGERY Outpatient Referral Routine Lumbar radiculopathy Cervical spine pain Ordered: 05/29/2025 documented as of this encounter Visit Diagnoses Diagnosis Lumbar radiculopathy- Primary Thoracic or lumbosacral neuritis or radiculitis, unspecified Cervical spine pain Cervicalgia documented in this encounter
[2025-05-31 04:53] VITALS: BP 142/82; PULSE 80; RESP 16; TEMP 36.6; O2SAT 99; BMI 28.1
[2025-05-31 05:01] VITALS: BP 142/82; PULSE 64; RESP 18; O2SAT 99
--- NOTE | 2025-05-31 05:13 | CTR_ITS ---
PROCEDURE INFORMATION: Exam: CT Chest With Contrast; Diagnostic Exam date and time: 05/31/2025 6:05 AM Age: 55 years old Clinical indication: Injury or trauma; Fall; Blunt trauma (contusions or hematomas); Additional info: Fall left sided rib and chest pain, SOB TECHNIQUE: Imaging protocol: Diagnostic computed tomography of the chest with contrast. Radiation optimization: All CT scans at this facility use at least one of these dose optimization techniques: automated exposure control; mA and/or kV adjustment per patient size (includes targeted exams where dose is matched to clinical indication); or iterative reconstruction. Contrast material: OMNI 350; Contrast volume: 100 ml; Contrast route: INTRAVENOUS (IV); COMPARISON: CR XR chest 1V portable [id number] 01/28/2025 10:39 AM RADIATION DOSE METRICS: Total DLP (mGy-cm): 307.52 FINDINGS: Lungs: Calcified granuloma at the left lung base. Pleural spaces: Unremarkable. No pneumothorax. No pleural effusion. Heart: Unremarkable. No cardiomegaly. No pericardial effusion. Lymph nodes: Unremarkable. No enlarged lymph nodes. Vasculature: Unremarkable. No aortic aneurysm. Gallbladder and biliary ducts: Cholecystectomy. Bones/joints: Unremarkable. No acute fracture. Soft tissues: Unremarkable. CT/CT chest w con* [id number] IMPRESSION: No acute findings.
--- NOTE | 2025-05-31 05:14 | XRR_ITS ---
PROCEDURE INFORMATION: Exam: XR Right Knee Exam date and time: 05/31/2025 5:15 AM Age: 55 years old Clinical indication: Right; C/O persistent RT knee pain post fall two days ago. ; Additional info: Fall R knee pain and swelling TECHNIQUE: Imaging protocol: Radiologic exam of the right knee. Views: 3 views. COMPARISON: No relevant prior studies available. FINDINGS: Bones/joints: Normal. No fracture or dislocation. Soft tissues: Normal. XR/XR knee RT 3V* [id number] IMPRESSION: No acute findings.
--- NOTE | 2025-05-31 05:17 | W.ED.FALL ---
HPI - Fall General: Chief Complaint: Fall Stated Complaint: fell hurt lt side, sob Time Seen by Provider: 05/31/25 04:54 History of Present Illness: Patient is a 55-year-old female who presents to the emergency department with multiple injuries after falling from a height of approximately 7 feet two days ago. She reports that she 'bounced off furniture' during the fall. Patient complains of pain in multiple areas with extensive bruising throughout her body. She specifically notes significant right knee swelling and pain. Patient also reports pleuritic chest pain, stating it hurts to breathe and cough. She describes the pain as severe when she moves and believes she may have broken or cracked ribs, or at minimum has severe bruising. The patient notes some increasing shortness of breath since the incident occurred. For pain management, she reports taking oxycodone prior to arrival with only partial relief. She denies fever or productive cough. Patient also mentions experiencing occasional dizziness. Related Data Home Medications ?Medication ?Instructions ?Recorded ?Confirmed alprazolam 1 mg tablet (Xanax) See Rx Instructions .Route 06/30/23 02/04/25 .COMPLEX PRN Anxiety biotin 10,000 mcg chewable tablet 10,000 mcg PO QAM 06/30/23 02/04/25 (Hair, Skin and Nails (biotin)) biotin 5 mg tablet 5 mg PO DAILY 06/30/23 02/04/25 bupropion HCl 150 mg tablet,12 hr 150 mg PO QAM 06/30/23 02/04/25 sustained-release (Wellbutrin SR) [id number] 50 0.5 tab PO Q6H PRN Pain 06/30/23 02/04/25 mg-325 mg-40 mg tablet collagen,hydrolysate 500 mg-biotin 1 cap PO QAM 06/30/23 02/04/25 800 mcg-ascorbic acid 50 mg capsule (Collagen 1500 Plus C) duloxetine 30 mg capsule,delayed 30 mg PO QAM 06/30/23 02/04/25 release estradiol 1 mg tablet 1 mg PO QAM 06/30/23 02/04/25 lactobacillus combination no.4 3 3,000 mmu cells PO DAILY 06/30/23 02/04/25 billion cell capsule (Probiotic) mike extract 500 mg capsule 500 mg PO QAM 06/30/23 02/04/25 meloxicam 15 mg tablet 15 mg PO QAM 06/30/23 02/04/25 multivitamin 1 tab PO QAM 06/30/23 02/04/25 propranolol 10 mg tablet 10 mg PO BID 06/30/23 02/04/25 tizanidine 2 mg tablet 2 mg PO BEDTIME PRN Spasms 06/30/23 02/04/25 tramadol 50 mg tablet 50 mg PO Q6H PRN Pain 06/30/23 02/04/25 Previous Rx's ?Medication ?Instructions ?Recorded methocarbamol 750 mg tablet 750 mg PO Q6H PRN spasms #20 tabs 01/28/25 naproxen 500 mg tablet (Naprosyn) 500 mg PO BID PRN pain #20 tabs 01/28/25 oxycodone 5 mg tablet 5 mg PO Q6H PRN Pain #7 tabs 05/31/25 Allergies Allergy/AdvReac Type Severity Reaction Status Date / Time No Known Allergies Allergy Verified 02/06/25 15:41 PFSH ED PFSH: Social History Smoking and tobacco/nicotine status: never used tobacco/nicotine Physical Exam Const: COMMON NORMALS: no acute distress GENERAL APPEARANCE: cooperative; not ill appearing and not frail appearing HENMT: COMMON NORMALS: normocephalic, atraumatic and Normal external nose present HEAD & SCALP: normocephalic and atraumatic FACE & SINUS: normal facial exam and face symmetric NOSE: Normal external nose present Eye: COMMON NORMALS: Equal, round and reactive pupils present and EOMs intact bilaterally PUPIL: Yes Equal, round and reactive pupils present Neck/C-Spine: GENERAL: Yes trachea midline Chest: CHEST: Yes Symmetrical chest wall rise and Yes localized rib tenderness with anteroposterior compression Resp: COMMON NORMALS: normal respiratory effort, No retractions, No use of accessory muscles and clear to auscultation bilaterally AUSCULTATION: clear to auscultation bilaterally Cardio: COMMON NORMALS: regular rate and regular rhythm RATE: regular rate RHYTHM: regular rhythm GI: COMMON NORMALS: Normal to inspection, nondistended, normoactive bowel sounds present Extremity: COMMON NORMALS: no pedal edema NARRATIVE EXTREMITY EXAM: Right knee diffuse anterior tenderness. Effusion is present. No deformity. Neuro: SARITHA COMA SCALE: document GCS findings Saritha coma scale eye opening: Spontaneous Saritha coma scale verbal response: Orientated Mcbrides coma scale motor response: Obey commands Mcbrides coma scale total score: 15 SENSORY EXAM: Yes extremities (intact) Psych: COMMON NORMALS: speech normal SPEECH: Yes normal speech Skin: COMMON NORMALS: no rashes or lesions noted GENERAL SKIN EXAM: no rashes or lesions noted Course Vital Signs: Vital signs: Vital Signs Temperature 97.9 F 05/31/25 04:53 Pulse Rate 63 05/31/25 07:54 Respiratory Rate 18 05/31/25 06:32 Blood Pressure 126/72 05/31/25 07:54 Pulse Oximetry 99 05/31/25 07:54 Oxygen Delivery Me thod Room Air 05/31/25 06:32 MDM - Fall Medical Decision Making 55-year-old female with left-sided chest discomfort tenderness following a fall 2 days ago. She also complains of right knee pain and swelling.She is now on [place] x-rays negative for fracture. CBC is normal. Vitals are normal. CT of the chest is nonacute. X-ray is nonacute. She is diagnosed with chest wall contusion, right knee contusion. Outpatient follow-up. Symptom control. Return for new symptoms. Lab Data 05/31/25 05:19 05/31/25 07:[address] 05/31/25 05:13 IMPRESSION: No acute findings. Knee X-Ray 05/31/25 05:14 IMPRESSION: No acute findings. Laboratory Results WBC 6.46 10^3/uL (3.29-11.43) 05/31/25 05:19 RBC 3.74 10^6/uL (3.85-5.65) L 05/31/25 05:19 Hgb 11.50 g/dL (11.27-16.99) 05/31/25 05:19 Hct 36.3 % (36-47) 05/31/25 05:19 MCV 97.1 fl (85-98) 05/31/25 05:19 MCH 30.7 pg (27-33) 05/31/25 05:19 MCHC 31.7 g/dL (30-55) 05/31/25 05:19 RDW 14.7 % (12.1-15.1) 05/31/25 05:19 Plt Count 278 10^3/cmm (157-399) 05/31/25 05:19 MPV 9.7 fL (7.4-10.4) 05/31/25 05:19 Neut % (Auto) 54.1 % 05/31/25 05:19 Lymph % (Auto) 31.9 % 05/31/25 05:19 Dare % (Auto) 8.2 % 05/31/25 05:19 Eos % (Auto) 5.0 % 05/31/25 05:19 Baso % (Auto) 0.5 % 05/31/25 05:19 Neut # (Auto) 3.50 10^3/uL (1.8-7.7) 05/31/25 05:19 Lymph # (Auto) 2.1 10^3/uL (0.8-4.8) 05/31/25 05:19 Dare # (Auto) 0.5 10^3/uL (0.2-0.9) 05/31/25 05:19 Eos # (Auto) 0.3 10^3/uL (0.0-0.8) 05/31/25 05:19 Baso # (Auto) 0.0 10^3/uL (0.0-0.1) 05/31/25 05:19 Nucleated RBC % (auto) 0 % 05/31/25 05:19 Nucleated RBCs # 0.0 /100WBC 05/31/25 05:19 Sodium 139 mmol/L (136-145) 05/31/25 07:40 Potassium 4.1 mmol/L (3.5-5.1) 05/31/25 07:40 Chloride 104 mmol/L (98-107) 05/31/25 07:40 Carbon Dioxide 26 mmol/L (22-29) 05/31/25 07:40 Anion Gap 13.1 (5-19) 05/31/25 07:40 BUN 18 mg/dL (6-20) 05/31/25 07:40 Creatinine 0.7 mg/dL (0.5-0.9) 05/31/25 07:40 GFR Calculation 86.6 mL/min (90-130) L 05/31/25 07:40 Glucose 80 mg/dL (65-115) 05/31/25 07:40 Calculated Osmolality 289 mOsm/kg (285-295) 05/31/25 07:40 Calcium 8.8 mg/dL (8.5-10.5) 05/31/25 07:40 Total Bilirubin 0.3 mg/dL (0.15-1.2) 05/31/25 07:40 AST 64 U/L (0-32) H 05/31/25 07:40 ALT 47 U/L (0-33) H 05/31/25 07:40 Alkaline Phosphatase 141 U/L (35-105) H 05/31/25 07:40 Total Protein 6.6 g/dL (6.6-8.7) 05/31/25 07:40 Albumin 3.7 g/dL (3.5-5.2) 05/31/25 07:40 Globulin 2.9 g/dL (1.3-4.6) 05/31/25 07:40 All radiology interpretation(s) finalized by discharge Discharge Plan Discharge Patient Disposition: Home Clinical Impression: Contusion of left chest wall Qualifiers: Encounter type: initial encounter Qualified Code(s): S20.212A - Contusion of left front wall of thorax, initial encounter Contusion of knee, right Qualifiers: Encounter type: initial encounter Qualified Code(s): S80.01XA - Contusion of right knee, initial encounter Condition: Stable Prescriptions: Continued oxycodone 5 mg Tablet 5 mg PO Q6H PRN (Reason: Pain) Qty: 7 0RF No Action Multi-Vitamins Tablet 1 tab PO QAM Wellbutrin SR 150 mg Tablet Sustained-Release 12 Hr 150 mg PO QAM tizanidine 2 mg Tablet 2 mg PO BEDTIME PRN (Reason: Spasms) Xanax 1 mg Tablet See Rx Instructions .ROUTE .COMPLEX PRN (Reason: Anxiety) Rx Instructions: 1 mg orally up to 3 times daily as needed meloxicam 15 mg Tablet 15 mg PO QAM tramadol 50 mg Tablet 50 mg PO Q6H PRN (Reason: Pain) propranolol 10 mg Tablet 10 mg PO BID estradiol 1 mg Tablet 1 mg PO QAM [id number] 50-325-40 mg Tablet 0.5 tab PO Q6H PRN (Reason: Pain) duloxetine 30 mg Capsule,Delayed Release(Dr/Ec) 30 mg PO QAM biotin 5 mg Tablet 5 mg PO DAILY mike extract 500 mg Capsule 500 mg PO QAM Probiotic 3 billion cell Capsule 3,000 mmu cells PO DAILY Rx Instructions: administer with a meal Collagen 1500 Plus C 500 mg-800 mcg- 50 mg Capsule 1 cap PO QAM Hair, Skin and Nails (biotin) 10,000 mcg Tablet,Chewable 10,000 mcg PO QAM methocarbamol 750 mg tablet 750 mg PO Q6H PRN (Reason: spasms) Qty: 20 0RF naproxen [Naprosyn] 500 mg tablet 500 mg PO BID PRN (Reason: pain) Qty: 20 0RF Discharge Orders: Discharge ED (Routine); Ordered 05/31/25 Ordered By: Valerie Saldana Referrals: Fadi Nation MD [Primary Care Provider, Family Practice] Patient Instructions: Knee Pain (ED), Chest Contusion (ED), Opioid Safety, Pain Management, Patient Portal & Wallace Instructions Activity Restrictions/Additional Instructions: Return for worsening pain despite treatment, worsening shortness of breath, fever greater than 100 ?F, other concerning symptoms. Call your doctor on Monday for a follow-up appointment this coming week. Print Language: Tongan Coding Level of Care Code ED Mixing Machine Attendant for Geoff Everett
[2025-05-31 05:30] LABS: Hematocrit 36.3 % (36-47); Hemoglobin 11.50 g/dL (11.27-16.99); Mean Corpuscular HGB Conc 31.7 g/dL (30-55); Mean Corpuscular Hemoglobin 30.7 pg (27-33); Mean Corpuscular Volume 97.1 fl (85-98); Nucleated Red Blood Cells % 0 %; Platelet Count 278 10^3/cmm (157-399); Red Blood Count 3.74 10^6/uL (3.85-5.65); White Blood Count 6.46 10^3/uL (3.29-11.43)
[2025-05-31] MEDS: morphine 4 mg/mL SDV 1 mL IVP (05:59)
[2025-05-31] MEDS: ondansetron 2 mg/ML SDV 2 mL 4 MG IVP (05:59)
[2025-05-31] MEDS: iohexol 350 mg/mL 500 mL Btl (per mL) IV (06:08)
[2025-05-31 06:32] VITALS: BP 119/72; PULSE 62; RESP 18; O2SAT 95
[2025-05-31] MEDS: HYDROcodone-acetaminophen 10-325 mg Tablet 1 TAB PO (06:47)
[2025-05-31 07:54] VITALS: BP 126/72; PULSE 63; O2SAT 99
[2025-05-31 08:09] LABS: Alanine Aminotransferase 47 U/L (0-33); Albumin Level 3.7 g/dL (3.5-5.2); Alkaline Phosphatase 141 U/L (35-105); Aspartate Amino Transferase 64 U/L (0-32); Blood Urea Nitrogen 18 mg/dL (6-20); Calcium 8.8 mg/dL (8.5-10.5); Carbon Dioxide 26 mmol/L (22-29); Chloride 104 mmol/L (98-107); Creatinine Clr Calc Pharmacy 85.4086; Globulin 2.9 g/dL (1.3-4.6); Glucose 80 mg/dL (65-115); Osmolality Calculated 289 mOsm/kg (285-295); Sodium 139 mmol/L (136-145); Total Protein 6.6 g/dL (6.6-8.7)
[2025-05-31 08:10] LABS: Anion Gap 13.1 (5-19); Potassium 4.1 mmol/L (3.5-5.1)
== END 2025-05-31 07:55 | disposition home or self-care (01) ==
PROVIDERS: Emergency Provider Emergency Medicine
DX: S20.212A Contusion of left front wall of thorax, initial encounter (principal); S80.01XA Contusion of right knee, initial encounter; W17.89XA Other fall from one level to another, initial encounter
CPT/HCPCS: 36415; 71260; 73562; 80053; 85025; 93005; 96374; 96375; 99285; J2270; J2405; J9999